=== PATIENT | female | born 1970 | race African-American/Black ===

== ENCOUNTER 2018-04-08 08:01 | Emergency (ER) | payer OTHER ==
[~2018-04-08] VITALS: Ht 154.9 cm; Wt 84.8 kg
[2018-04-08] MEDS ORDERED: predniSONE 10 MG TABLET PO ONE (08:30)
[2018-04-08] MEDS ORDERED: IBUPROFEN 600 MG TABLET. PO ONE (08:30)
[2018-04-08 08:45] LABS: BASO % 0 % (0-3); EOS # 0.2 x10^3/uL (0.0-0.7); EOS % 4 % (0-3); HEMOGLOBIN 13.4 g/dL (12.0-15.5); LYMPH % 21 % (24-48); MEAN CORPUSCULAR HEMOGLOBIN 32 pg (25-35); MEAN CORPUSCULAR HGB CONC 35 g/dL (31-37); MEAN CORPUSCULAR VOLUME 90 fL (79-100); MONO # 0.7 x10^3/uL (0.0-1.1); MONO % 15 % (0-9); NEUT # 2.7 x10^3uL (1.8-7.7); NEUT % 59 % (31-73); PLATELET COUNT 262 x10^3/uL (140-400); RED BLOOD COUNT 4.23 x10^6/uL (3.50-5.40); RED CELL DISTRIBUTION WIDTH 12.9 % (11.5-14.5); WHITE BLOOD COUNT 4.6 x10^3/uL (4.0-11.0)
[2018-04-08] MEDS ORDERED: KETOROLAC 30 MG/ML VIAL. IV ONE (08:45)
--- NOTE | 2018-04-08 08:45 | PHYS DOC ---
Past Medical History Past Medical History: No Pertinent History Past Surgical History: , Hysterectomy Alcohol Use: None Drug Use: None Adult General Chief Complaint Chief Complaint: FLU SYMPTOM HPI HPI Patient is a 47 year old female who presents with sinus congestion, fever, chest pressure and pain with cough, shortness of air with exertion for 1 week. Patient states she's been gagging from coughing is causing her to vomit occasionally. She states she has been taking in plenty of fluids. States that her throat is sore from coughing. Patient states she's been taking her: Left, day and night cold and flu, cough medication, Tylenol which was last at 7:30 this morning. Patient rates her pain a 7 out of 10. She has tachycardia at 119, 96% on room air, 160/88, 24 respirations. Patient states she takes no medications daily and has no past medical history. Patient has had a hysterectomy and had pneumonia back in 2013 of which she states that that is what this feels like. Patient is also had a . Review of Systems Review of Systems Constitutional: fever or chills [] Eyes: Denies change in visual acuity, redness, or eye pain [] HENT: nasal congestion and sore throat [] Respiratory: Cough and shortness of breath [] Cardiovascular: No additional information not addressed in HPI [] GI: Denies abdominal pain, nausea, vomiting, bloody stools or diarrhea [] : Denies dysuria or hematuria [] Musculoskeletal: Body aches. Denies back pain or joint pain [] Integument: Denies rash or skin lesions [] Neurologic: Denies headache, focal weakness or sensory changes [] All other systems were reviewed and found to be within normal limits, except as documented in this note. Current Medications Current Medications Current Medications Medications (Trade) Dose Ordered Sig/Dominic Start Time Stop Time Status Last Admin Dose Admin Albuterol/ Ipratropium (Duoneb) 3 ml 1X ONCE 04/08/18 09:15 04/08/18 09:16 UNV Ibuprofen (Motrin) 600 mg 1X ONCE 04/08/18 08:30 04/08/18 08:31 Cancel Ketorolac Tromethamine (Toradol 30mg Vial) 30 mg 1X ONCE 04/08/18 08:45 04/08/18 08:46 DC 04/08/18 08:55 30 MG Prednisone (Prednisone) 50 mg 1X ONCE 04/08/18 08:30 04/08/18 08:31 DC 04/08/18 08:55 50 MG Allergies Allergies Allergies Coded Allergies Type Severity Reaction Last Updated Verified No Known Drug Allergies 05/16/13 No Physical Exam Physical Exam Constitutional: Well developed, well nourished, no acute distress, non-toxic appearance. [] HENT: Normocephalic, atraumatic, bilateral external ears normal, oropharynx moist, no oral exudates, nose normal. [] Eyes: PERRLA, EOMI, conjunctiva normal, no discharge. [] Neck: Normal range of motion, no tenderness, supple, no stridor. [] Cardiovascular: Tachycardia, regular rhythm, no murmur [] Lungs & Thorax: Bilateral upper lobes clear but lower lobes are diminished Abdomen: Bowel sounds normal, soft, no tenderness, no masses, no pulsatile masses. [] Skin: Warm, dry, no erythema, no rash. [] Back: No tenderness, no CVA tenderness. [] Extremities: No tenderness, no cyanosis, no clubbing, ROM intact, no edema. [] Neurologic: Alert and oriented X 3, normal motor function, normal sensory function, no focal deficits noted. [] Psychologic: Affect normal, judgement normal, mood normal. [] Current Patient Data Vital Signs Vital Signs Date Time Temp Pulse Resp B/P (MAP) Pulse Ox O2 Delivery O2 Flow Rate FiO2 04/08/18 08:05 99.4 123 20 160/88 (112) 96 Room Air 99.4 Lab Values Laboratory Tests Test 04/08/18 08:10 04/08/18 08:30 Influenza Type A Antigen Negative (NEGATIVE) Influenza Type B Antigen Negative (NEGATIVE) White Blood Count 4.6 x10^3/uL (4.0-11.0) Red Blood Count 4.23 x10^6/uL (3.50-5.40) Hemoglobin 13.4 g/dL (12.0-15.5) Hematocrit 38.0 % (36.0-47.0) Mean Corpuscular Volume 90 fL (79-100) Mean Corpuscular Hemoglobin 32 pg (25-35) Mean Corpuscular Hemoglobin Concent 35 g/dL (31-37) Red Cell Distribution Width 12.9 % (11.5-14.5) Platelet Count 262 x10^3/uL (140-400) Neutrophils (%) (Auto) 59 % (31-73) Lymphocytes (%) (Auto) 21 % (24-48) L Monocytes (%) (Auto) 15 % (0-9) H Eosinophils (%) (Auto) 4 % (0-3) H Basophils (%) (Auto) 0 % (0-3) Neutrophils # (Auto) 2.7 x10^3uL (1.8-7.7) Lymphocytes # (Auto) 1.0 x10^3/uL (1.0-4.8) Monocytes # (Auto) 0.7 x10^3/uL (0.0-1.1) Eosinophils # (Auto) 0.2 x10^3/uL (0.0-0.7) Basophils # (Auto) 0.0 x10^3/uL (0.0-0.2) Sodium Level 138 mmol/L (136-145) Potassium Level 4.2 mmol/L (3.5-5.1) Chloride Level 103 mmol/L (98-107) Carbon Dioxide Level 25 mmol/L (21-32) Anion Gap 10 (6-14) Blood Urea Nitrogen 8 mg/dL (7-20) Creatinine 0.7 mg/dL (0.6-1.0) Estimated GFR (Cockcroft-Gault) 88.9 Glucose Level 109 mg/dL (70-99) H Calcium Level 8.8 mg/dL (8.5-10.1) Laboratory Tests 04/08/18 08:30 Laboratory Tests 04/08/18 08:30 EKG EKG SINUS NO STEMI Interpretation Time: [address] MUNOZ Radiology/Procedures Radiology/Procedures Chest xray Impressions: [facility] [address] [place], [place] [id number] IMAGING REPORT Signed PATIENT: SHYANN HENDERSON ACCOUNT: [id number] : 1970 LOCATION: ER AGE: 47 SEX: F EXAM STATUS: REG ER ORD. PHYSICIAN: RAMON WELDON APRN REASON: chest tightness, fever PROCEDURE: CHEST PA & LATERAL Chest, PA and Lateral: Technique: PA and lateral views of the chest were obtained. History: Chest tightness, cough, fever. Comparison: 05/19/2013. Findings: The heart and pulmonary vasculature appear within normal limits. Minimal bibasilar lung airspace opacities.. Mild degenerative changes thoracic spine.. Impression: Minimal bibasilar lung airspace opacities likely atelectasis or infiltrates.. Electronically signed by: Liam Lim MD (04/08/2018 8:48 AM) [facility] DICTATED and SIGNED BY: LIAM LIM MD DATE: 04/08/18 0846 Course & Med Decision Making Course & Med Decision Making Patient is a 47 year old female who presents with sinus congestion, fever, chest pressure and pain with cough, shortness of air with exertion for 1 week. Patient states she's been gagging from coughing is causing her to vomit occasionally. She states she has been taking in plenty of fluids. States that her throat is sore from coughing. Patient states she's been taking her: Left, day and night cold and flu, cough medication, Tylenol which was last at 7:30 this morning. Patient rates her pain a 7 out of 10. She has tachycardia at 119, 96% on room air, 160/88, 24 respirations. Patient states she takes no medications daily and has no past medical history. Patient has had a hysterectomy and had pneumonia back in 2013 of which she states that that is what this feels like. Patient is also had a . skin is pink warm and dry. Alert And oriented. Ambulatory. Patient is very out of breath from walking from triage to her room. She speaks in full clear sentences. Patient has a productive cough but states that she is afraid of coughing because it hurts. Patient denies any nausea vomiting or diarrhea. Throat is pink and without exudates. Bilateral tympanic membranes are within pearly white. She has no extremity edema or rashes. Patient states that she did not get her flu shot. Lungs are clear to auscultation upper lobes but slightly diminished in lower lobes. I do not hear any wheezing or rales or coarseness. Chest xray shows pneumonia. She is treated with Azithromycin. [] Dragon Disclaimer Dragon Disclaimer This electronic medical record was generated, in whole or in part, using a voice recognition dictation system. Departure Departure Impression: Primary Impression: Community acquired pneumonia Disposition: 01 HOME, SELF-CARE Condition: STABLE Referrals: NO PCP (PCP) Patient Instructions: Pneumonia, Adult Additional Instructions: FOLLOW UP WITH YOUR PRIMARY CARE. USE TYLENOL OR IBUPROFEN. DRINK PLENTY OF FLUIDS. Scripts Azithromycin (AZITHROMYCIN TABLET) 250 Mg Tablet 1 PKG PO UD, #6 TAB Prov: RAMON WELDON APRN 04/08/18 Problem Qualifiers Primary Impression: Community acquired pneumonia Laterality: unspecified laterality Qualified Codes: J18.9 - Pneumonia, unspecified organism RAMON WELDON APRN Apr 08, 2018 08:45
[2018-04-08 08:51] LABS: CALCIUM 8.8 mg/dL (8.5-10.1); CREATININE 0.7 mg/dL (0.6-1.0); GFR 88.9
--- NOTE | 2018-04-08 08:52 | RAD ---
Chest, PA and Lateral: Technique: PA and lateral views of the chest were obtained. History: Chest tightness, cough, fever. Comparison: 05/19/2013. Findings: The heart and pulmonary vasculature appear within normal limits. Minimal bibasilar lung airspace opacities.. Mild degenerative changes thoracic spine.. Impression: Minimal bibasilar lung airspace opacities likely atelectasis or infiltrates.. Electronically signed by: Liam Lim MD (04/08/2018 8:48 AM) [facility]
[2018-04-08 08:55] LABS: INFLUENZA A PATIENT NEGATIVE (NEGATIVE); INFLUENZA B PATIENT NEGATIVE (NEGATIVE)
[2018-04-08 08:55] LABS: POTASSIUM 4.2 mmol/L (3.5-5.1)
[2018-04-08] MEDS ORDERED: AZIT250T6 PO ×2 (09:02→09:10)
[2018-04-08] MEDS ORDERED: IPRATRPIUM/ALBUTEROL 0.5/2.5MG 3 ML NEBU. NEB ONE (09:15)
[2018-04-08 10:03] VITALS: BP 140/65
--- NOTE | 2018-04-09 08:18 | EKG ---
[facility] [address] [place] [address] Test Date: 2018-04-08 Test Time: 08:45:00 Pat Name: SHYANN HENDERSON Department: Room: Gender: Female Head Of Visual Merchandising: : 1970 Requested By: RAMON WELDON Order Number: [id number] Reading MD: Kip Livingston Measurements Intervals [place] Rate: 94 P: 22 ME: 140 QRS: 28 QRSD: 68 T: 28 QT: 330 QTc: 418 Interpretive Statements SINUS RHYTHM Electronically Signed On 04-10-2018 8:53:42 CONSULTING [employer] FORESTER by Kip Livingston
== END 2018-04-08 10:11 | disposition home or self-care (01) ==
LOC: ER 08:01
DX: J18.9 Pneumonia, unspecified organism (principal)
CPT/HCPCS: 36415; 71046; 80048; 85025; 87804; 93005; 94640; 96374; 99284; J1885; J7512; J7620

== ENCOUNTER 2018-07-01 08:28 | Emergency (ER) | payer OTHER ==
[~2018-07-01] VITALS: Ht 154.9 cm; Wt 80.3 kg
[~2018-07-01 08:28] MED LIST: AZIT250T6 PO
[2018-07-01] MEDS ORDERED: IV NORMAL SALINE 1000ML BAG 1,000 ML IV SCH (08:42)
[2018-07-01] MEDS ORDERED: IPRATRPIUM/ALBUTEROL 0.5/2.5MG 3 ML NEBU. NEB ONE (08:45)
[2018-07-01] MEDS ORDERED: KETOROLAC 30 MG/ML VIAL. IV ONE (08:45)
[2018-07-01] MEDS ORDERED: ONDANSETRON PF 4 MG/2 ML VIAL. IV ONE (08:45)
[2018-07-01] MEDS ORDERED: fentaNYL PF VIAL 100 MCG/2 ML VIAL IV ONE (08:45)
[2018-07-01] MEDS ORDERED: predniSONE 10 MG TABLET PO ONE (08:45)
[2018-07-01] MEDS ORDERED: IV NORMAL SALINE 1000ML BAG 1,000 ML IV ONE ×2 (08:45→09:30)
--- NOTE | 2018-07-01 08:57 | PHYS DOC ---
Past Medical History Past Medical History: No Pertinent History (RAMON WELDON APRN) Past Surgical History: , Hysterectomy (RAMON WELDON APRN) Alcohol Use: None Drug Use: None (RAMON WELDON APRN) Adult General Chief Complaint Chief Complaint: SHORTNESS OF BREATH HPI HPI Patient is a 48 year old female who presents with nasal congestion, cough, shortness of air, headache, chest pain, fever 3 days. Nausea vomiting that started yesterday. Alert and oriented. Speaks in full clear sentences. Patient states that she is coughing up yellow-green mucus. Patient states that she's been seen at [facility] and they keep telling her that it's a respiratory virus. Patient's only history is pneumonia she takes no medications daily. She states she has been taking Mucinex and cold and flu medication. (RAMON WELDON APRN) Review of Systems Review of Systems Constitutional: fever or chills [] Eyes: Denies change in visual acuity, redness, or eye pain [] HENT: nasal congestion or sore throat [] Respiratory: cough or shortness of breath [] Cardiovascular:Chest pain GI: Denies abdominal pain. + nausea, +vomiting, decreased bloody stools or diarrhea [] : Denies dysuria or hematuria [] Musculoskeletal: Denies back pain or joint pain [] Integument: Denies rash or skin lesions [] Neurologic: Denies headache, focal weakness or sensory changes [] All other systems were reviewed and found to be within normal limits, except as documented in this note. (RAMON WELDON APRN) Current Medications Current Medications Current Medications Medications (Trade) Dose Ordered Sig/Dominic Start Time Stop Time Status Last Admin Dose Admin Albuterol/ Ipratropium (Duoneb) 3 ml 1X ONCE 07/01/18 08:45 07/01/18 08:51 DC 07/01/18 08:55 3 ML Fentanyl Citrate (Fentanyl 2ml Vial) 50 mcg 1X ONCE 07/01/18 08:45 07/01/18 08:51 DC 07/01/18 09:20 50 MCG Ketorolac Tromethamine (Toradol 30mg Vial) 30 mg 1X ONCE 07/01/18 08:45 07/01/18 08:51 DC 07/01/18 09:19 30 MG Ondansetron HCl (Zofran) 4 mg 1X ONCE 07/01/18 08:45 07/01/18 08:51 DC 07/01/18 09:18 4 MG Prednisone (Prednisone) 50 mg 1X ONCE 07/01/18 08:45 07/01/18 08:51 DC 07/01/18 09:13 50 MG Sodium Chloride 1,000 ml @ 1,000 mls/hr 1X ONCE 07/01/18 09:30 07/01/18 10:29 DC 07/01/18 10:10 1,000 MLS/HR (ANGELIKA CINTRON MD) Allergies Allergies Allergies Coded Allergies Type Severity Reaction Last Updated Verified No Known Drug Allergies 05/16/13 No (ANGELIKA CINTRON MD) Physical Exam Physical Exam Constitutional: Well developed, well nourished, no acute distress, non-toxic appearance. [] HENT: Normocephalic, atraumatic, bilateral external ears normal, oropharynx moist, no oral exudates, nasal congestion. [] Eyes: PERRLA, EOMI, conjunctiva normal, no discharge. [] Neck: Normal range of motion, no tenderness, supple, no stridor. [] Cardiovascular:Heart rate tachycardia rhythm, no murmur [] Lungs & Thorax: Bilateral breath sounds clear to auscultation, but soa with exertion [] Abdomen: Bowel sounds normal, soft, no tenderness, no masses, no pulsatile masses. [] Skin: Warm, dry, no erythema, no rash. [] Back: No tenderness, no CVA tenderness. [] Extremities: No tenderness, no cyanosis, no clubbing, ROM intact, no edema. [] Neurologic: Alert and oriented X 3, normal motor function, normal sensory function, no focal deficits noted. [] Psychologic: Affect normal, judgement normal, mood normal. [] (FATEMEH,RAMON Linda APRN) Current Patient Data Vital Signs Vital Signs Date Time Temp Pulse Resp B/P (MAP) Pulse Ox O2 Delivery O2 Flow Rate FiO2 07/01/18 10:00 98 20 164/80 (108) 97 Room Air 07/01/18 08:29 99.2 99.2 (ANGELIKA CINTRON MD) Lab Values Laboratory Tests Test 07/01/18 08:40 White Blood Count 7.2 x10^3/uL (4.0-11.0) Red Blood Count 4.38 x10^6/uL (3.50-5.40) Hemoglobin 13.2 g/dL (12.0-15.5) Hematocrit 38.6 % (36.0-47.0) Mean Corpuscular Volume 88 fL (79-100) Mean Corpuscular Hemoglobin 30 pg (25-35) Mean Corpuscular Hemoglobin Concent 34 g/dL (31-37) Red Cell Distribution Width 12.7 % (11.5-14.5) Platelet Count 313 x10^3/uL (140-400) Neutrophils (%) (Auto) 71 % (31-73) Lymphocytes (%) (Auto) 13 % (24-48) L Monocytes (%) (Auto) 11 % (0-9) H Eosinophils (%) (Auto) 5 % (0-3) H Basophils (%) (Auto) 0 % (0-3) Neutrophils # (Auto) 5.1 x10^3uL (1.8-7.7) Lymphocytes # (Auto) 1.0 x10^3/uL (1.0-4.8) Monocytes # (Auto) 0.8 x10^3/uL (0.0-1.1) Eosinophils # (Auto) 0.3 x10^3/uL (0.0-0.7) Basophils # (Auto) 0.0 x10^3/uL (0.0-0.2) D-Dimer (Mary) 0.34 ug/mlFEU (0.00-0.50) Sodium Level 139 mmol/L (136-145) Potassium Level 3.8 mmol/L (3.5-5.1) Chloride Level 102 mmol/L (98-107) Carbon Dioxide Level 23 mmol/L (21-32) Anion Gap 14 (6-14) Blood Urea Nitrogen 11 mg/dL (7-20) Creatinine 1.0 mg/dL (0.6-1.0) Estimated GFR (Cockcroft-Gault) 71.0 BUN/Creatinine Ratio 11 (6-20) Glucose Level 116 mg/dL (70-99) H Lactic Acid Level 1.2 mmol/L (0.4-2.0) Calcium Level 9.0 mg/dL (8.5-10.1) Total Bilirubin 0.3 mg/dL (0.2-1.0) Aspartate Amino Transferase (AST) 15 U/L (15-37) Alanine Aminotransferase (ALT) 22 U/L (14-59) Alkaline Phosphatase 46 U/L (46-116) Troponin I Quantitative < 0.017 ng/mL (0.000-0.055) Total Protein 7.5 g/dL (6.4-8.2) Albumin 4.0 g/dL (3.4-5.0) Albumin/Globulin Ratio 1.1 (1.0-1.7) Laboratory Tests 07/01/18 08:40 Laboratory Tests 07/01/18 08:40 (ANGELIKA CINTRON MD) Lab Values Laboratory Tests Test 07/01/18 08:40 White Blood Count 7.2 x10^3/uL (4.0-11.0) Red Blood Count 4.38 x10^6/uL (3.50-5.40) Hemoglobin 13.2 g/dL (12.0-15.5) Hematocrit 38.6 % (36.0-47.0) Mean Corpuscular Volume 88 fL (79-100) Mean Corpuscular Hemoglobin 30 pg (25-35) Mean Corpuscular Hemoglobin Concent 34 g/dL (31-37) Red Cell Distribution Width 12.7 % (11.5-14.5) Platelet Count 313 x10^3/uL (140-400) Neutrophils (%) (Auto) 71 % (31-73) Lymphocytes (%) (Auto) 13 % (24-48) L Monocytes (%) (Auto) 11 % (0-9) H Eosinophils (%) (Auto) 5 % (0-3) H Basophils (%) (Auto) 0 % (0-3) Neutrophils # (Auto) 5.1 x10^3uL (1.8-7.7) Lymphocytes # (Auto) 1.0 x10^3/uL (1.0-4.8) Monocytes # (Auto) 0.8 x10^3/uL (0.0-1.1) Eosinophils # (Auto) 0.3 x10^3/uL (0.0-0.7) Basophils # (Auto) 0.0 x10^3/uL (0.0-0.2) D-Dimer (Mary) 0.34 ug/mlFEU (0.00-0.50) Sodium Level 139 mmol/L (136-145) Potassium Level 3.8 mmol/L (3.5-5.1) Chloride Level 102 mmol/L (98-107) Carbon Dioxide Level 23 mmol/L (21-32) Anion Gap 14 (6-14) Blood Urea Nitrogen 11 mg/dL (7-20) Creatinine 1.0 mg/dL (0.6-1.0) Estimated GFR (Cockcroft-Gault) 71.0 BUN/Creatinine Ratio 11 (6-20) Glucose Level 116 mg/dL (70-99) H Lactic Acid Level 1.2 mmol/L (0.4-2.0) Calcium Level 9.0 mg/dL (8.5-10.1) Total Bilirubin 0.3 mg/dL (0.2-1.0) Aspartate Amino Transferase (AST) 15 U/L (15-37) Alanine Aminotransferase (ALT) 22 U/L (14-59) Alkaline Phosphatase 46 U/L (46-116) Troponin I Quantitative < 0.017 ng/mL (0.000-0.055) Total Protein 7.5 g/dL (6.4-8.2) Albumin 4.0 g/dL (3.4-5.0) Albumin/Globulin Ratio 1.1 (1.0-1.7) Laboratory Tests 07/01/18 08:40 Laboratory Tests 07/01/18 08:40 (RAMON WELDON APRN) EKG EKG Sinus Tachycardia and no STEMI[] Interpretation Time: [address] Cintron (RAMON WELDON APRN) Radiology/Procedures Radiology/Procedures [] (RAMON WELDON APRN) Impressions: [facility] [address] [place] [address] IMAGING REPORT Signed PATIENT: SHYANN HENDERSON ACCOUNT: [id number] : 1970 LOCATION: ER AGE: 48 SEX: F EXAM STATUS: PRE ER ORD. PHYSICIAN: RAMON WELDON APRN REASON: chest pain PROCEDURE: CHEST PA & LATERAL CHEST PA LATERAL CLINICAL INDICATION: CHEST PAIN, SOA, WET COUGH X3 DAYS. HX OF PNEUMONIA COMPARISON: 04/08/2018 FINDINGS: Heart is normal in size. Left basilar patchy opacities are seen. No pneumothorax or effusion. Visualized bony thorax within normal limits. IMPRESSION: Left basilar patchy opacities may be secondary to subsegmental atelectasis, aspiration or pneumonia. Electronically signed by: Pramod Miranda DO (07/01/2018 9:22 AM) [facility] DICTATED and SIGNED BY: PRAMOD MIRANDA DO DATE: 07/01/18919 (RAMON WELDON APRN) Course & Med Decision Making Course & Med Decision Making Patient is a 48 year old female who presents with nasal congestion, cough, shortness of air, headache, chest pain (10) nonradiating, fever 3 days. Nausea vomiting that started yesterday. Alert and oriented. Speaks in full clear sentences. Patient states that she is coughing up yellow-green mucus. Patient states that she's been seen at [facility] and they keep telling her that it's a respiratory virus. Patient's only history is pneumonia she takes no medications daily. She states she has been taking Mucinex and cold and flu medication. Alert and oriented. Skin pink warm and dry. Mucous membranes moist. Ambulatory. Patient is short of air with exertion. Lungs are clear to auscultation all lobes. She has no extremity swelling. Abdomen is soft and nontender. Patient states that she has chest pain that feels like it is stabbing her being ripped apart especially when she goes to blow her nose or cough. Patient did seem to be very exerted after eating undressed in the room. PERRLA. Denies dizziness, syncope, or weaknesses, numbness or tingling, visual changes. Patient states she feels generalized weakness. She was all extremities equally. PERC states PE can not be ruled out. Wells states low risk. I have ordered a ddimer. Heart score 2. Blood work unremarkable. Chest xray shows Left basilar patchy opacities may be secondary to subsegmental atelectasis, aspiration or pneumonia. Patient will be treated for pneumonia with a prescription for azithromycin, Medrol Dosepak, and pro-air inhaler. Patient is to follow-up with her primary care doctor within the next 5 days or sooner if not getting any better. Heart rate 106, 98% room air, 19 RR. (RAMON WELDON APRN) Course & Med Decision Making Staff Physician Addendum: I was working in the ER during the course of this patient's visit. I was available for consultation as needed, but I was not directly involved in the care of this patient. (ANGELIKA CINTRON MD) Dragon Disclaimer Dragon Disclaimer This electronic medical record was generated, in whole or in part, using a voice recognition dictation system. (RAMON WELDON APRN) Departure Departure Impression: Primary Impression: Community acquired pneumonia Disposition: HOME, SELF-CARE Condition: STABLE Referrals: NO PCP (PCP) Patient Instructions: Pneumonia, Adult Additional Instructions: Follow up with primary care physician within 5 days. Take medications as prescribed. Drink plenty of fluids. Scripts Benzonatate (TESSALON PERLE) 100 Mg Capsule 1 CAP PO TID, #30 CAP Prov: MARILEENAJAENL MCKINNONCHELLE Linda APR07/01/18 Ibuprofen (IBUPROFEN) 600 Mg Tablet 600 MG PO PRN Q6HRS PRN for INFLAMMATION, #15 TAB Prov: RAMON WELDON 07/01/18 Ondansetron (ONDANSETRON ODT) 4 Mg Tab.rapdis 1 TAB PO PRN Q6-8HRS, #16 TAB Prov: FATEMEHRAMON M 07/01/18 Albuterol Sulfate (PROAIR HFA INHALER) 8.5 Gm Hfa.aer.ad 1 PUFF INH PRN Q6HRS PRN for SHORTNESS OF BREATH, #1 INHALER 0 Refills Prov: MARIELENAJANEL MCKINNONCHELLE Linda APR07/01/18 Methylprednisolone (MEDROL) 4 Mg Tab.ds.pk 1 PKG PO UD, #1 PKG Prov: RAMON WELDON APR07/01/18 Azithromycin (AZITHROMYCIN TABLET) 250 Mg Tablet 1 PKG PO UD, #6 TAB Prov: MARIELENARAMONCHELLE Linda APRN 07/01/18 Problem Qualifiers Primary Impression: Community acquired pneumonia Laterality: left Lung location: unspecified part of lung Qualified Codes: J18.9 - Pneumonia, unspecified organism RAMON WELDON APRN Jul 01, 2018 08:57 ANGELIKA CINTRON MD Jul 01, 2018 11:51
[2018-07-01 09:05] LABS: BASO % 0 % (0-3); EOS # 0.3 x10^3/uL (0.0-0.7); EOS % 5 % (0-3); HEMATOCRIT 38.6 % (36.0-47.0); HEMOGLOBIN 13.2 g/dL (12.0-15.5); LYMPH % 13 % (24-48); MEAN CORPUSCULAR HEMOGLOBIN 30 pg (25-35); MEAN CORPUSCULAR HGB CONC 34 g/dL (31-37); MEAN CORPUSCULAR VOLUME 88 fL (79-100); MONO # 0.8 x10^3/uL (0.0-1.1); MONO % 11 % (0-9); NEUT # 5.1 x10^3uL (1.8-7.7); NEUT % 71 % (31-73); PLATELET COUNT 313 x10^3/uL (140-400); RED BLOOD COUNT 4.38 x10^6/uL (3.50-5.40); RED CELL DISTRIBUTION WIDTH 12.7 % (11.5-14.5); WHITE BLOOD COUNT 7.2 x10^3/uL (4.0-11.0)
[2018-07-01 09:13] LABS: POTASSIUM 3.8 mmol/L (3.5-5.1)
[2018-07-01 09:19] LABS: ALBUMIN/GLOBULIN RATIO 1.1 (1.0-1.7); TOTAL BILIRUBIN 0.3 mg/dL (0.2-1.0); TOTAL PROTEIN 7.5 g/dL (6.4-8.2)
--- NOTE | 2018-07-01 09:25 | RAD ---
CHEST PA LATERAL CLINICAL INDICATION: CHEST PAIN, SOA, WET COUGH X3 DAYS. HX OF PNEUMONIA COMPARISON: 04/08/2018 FINDINGS: Heart is normal in size. Left basilar patchy opacities are seen. No pneumothorax or effusion. Visualized bony thorax within normal limits. IMPRESSION: Left basilar patchy opacities may be secondary to subsegmental atelectasis, aspiration or pneumonia. Electronically signed by: Pramod Miranda DO (07/01/2018 9:22 AM) [facility]
[2018-07-01] MEDS ORDERED: METH4TAB2 PO (09:35)
[2018-07-01] MEDS ORDERED: BENZ100C PO (09:35)
[2018-07-01] MEDS ORDERED: ONDA4TAB12 PO (09:35)
[2018-07-01] MEDS ORDERED: IBUP-1007 PO (09:35)
[2018-07-01] MEDS ORDERED: ALBU2.5V8 INH (09:35)
[2018-07-01] MEDS ORDERED: AZIT250T6 PO (09:35)
[2018-07-01 10:00] VITALS: BP 164/80
--- NOTE | 2018-07-01 14:49 | EKG ---
[facility] [address] [place] [address] Test Date: 2018-07-01 Test Time: 09:03:37 Pat Name: SHYANN HENDERSON Department: Room: Gender: F Ssis Architect: : 1970 Requested By: RAMON WELDON Order Number: [id number] Reading MD: Kip Livingston Measurements Intervals [place] Rate: 106 P: 0 [place]: 140 QRS: 47 QRSD: 64 T: 49 QT: 320 QTc: 427 Interpretive Statements SINUS TACHYCARDIA Electronically Signed On 07-11-2018 10:35:54 PUBLIC HEALTH CLINICAL NURSE SPECIALIST by Kip Livingston
== END 2018-07-01 10:54 | disposition home or self-care (01) ==
LOC: ER 08:28
DX: J18.9 Pneumonia, unspecified organism (principal); R11.2 Nausea with vomiting, unspecified
CPT/HCPCS: 71046; 80053; 83605; 84484; 85025; 85379; 87040; 93005; 94640; 96361; 96374; 96375; 99284; J1885; J2405; J3010; J7030; J7512; J7620; 36415

== ENCOUNTER 2018-08-14 17:00 | Emergency (ER) | payer OTHER ==
[~2018-08-14] VITALS: Ht 154.9 cm; Wt 85.7 kg
[~2018-08-14 17:00] MED LIST changes: +ALBU2.5V8 INH; +BENZ100C PO; +IBUP-1007 PO; +METH4TAB2 PO; +ONDA4TAB12 PO
[2018-08-14 17:13] VITALS: BP 165/64
--- NOTE | 2018-08-14 17:44 | PHYS DOC ---
Past Medical History Past Medical History: Pneumonia Past Surgical History: , Hysterectomy Alcohol Use: None Drug Use: None Adult General Chief Complaint Chief Complaint: BACK PAIN - NO INJURY HPI HPI 48-year-old female presents to ER with complaints of low mid back pain 1 week. Patient denies any recent falls or injury. Patient denies taking any over-the- counter medications for pain. She reports she has done IN salt soak with no relief in symptoms. She denies urinary symptoms, fever, saddle anesthesia, or incontinence of bowel or bladder. 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 She reports she's had pain with standing and repositioning. She denies swelling in lower extremities, calf pain, or numbness and tingling. She denies any recent long trips. She reports she wears heels majority of the days for her job. Patient reports she didn't want to take any medications to mask her pain so that she would be able to identify where she was tender. She reports she drove herself to the ER. Review of Systems Review of Systems Constitutional: Denies fatigue or weakness Cardiovascular: No additional information not addressed in HPI [] GI: Denies abdominal pain, nausea, vomiting, bloody stools or diarrhea [] : Denies dysuria or hematuria. Denies incontinence of bowel or bladder. Ports history of hysterectomy Musculoskeletal: Denies neck pain or joint pain. Reports mid low back pain denies radiation into bilateral sides of back or down her extremities. Integument: Denies rash, swelling or skin lesions [] Neurologic: Denies headache, focal weakness or sensory changes. Denies numbness/ tingling All other systems were reviewed and found to be within normal limits, except as documented in this note. Current Medications Current Medications Current Medications Medications (Trade) Dose Ordered Sig/Dominic Start Time Stop Time Status Last Admin Dose Admin Ibuprofen (Motrin) 800 mg 1X ONCE 08/14/18 17:45 08/14/18 17:46 DC 08/14/18 18:14 800 MG Lidocaine (Lidoderm) 1 patch DAILY 08/14/18 18:00 08/14/18 19:02 DC 08/14/18 18:14 1 PATCH Miscellaneous (Lidoderm Patch Removal) 1 ea QHS 08/14/18 21:00 08/14/18 21:00 DC Allergies Allergies Allergies Coded Allergies Type Severity Reaction Last Updated Verified No Known Drug Allergies 05/16/13 No Physical Exam Physical Exam Constitutional: Well developed, well nourished, no acute distress, non-toxic appearance. [] HENT: Normocephalic, atraumatic, oropharynx moist, nose normal. [] Eyes: Pupils equal, conjunctiva normal, no discharge. [] Neck: Normal range of motion, no tenderness, supple, no stridor. [] Cardiovascular: Heart rate regular Lungs & Thorax: Resp. equal/nonlabored Skin: Warm, dry, no erythema, no rash. [] Back: Tender mid low lumbar spine- no palp. deformity/crepitus- full ROM, no CVA tenderness. Steady unassisted gait Extremities: No tenderness, no cyanosis, no clubbing, ROM intact, no edema. 2+ bilat. posterior tibial. No calf tenderness. Symmetric calf size Neurologic: Alert and oriented X 3, normal motor function, normal sensory function, no focal deficits noted. [] Psychologic: Affect normal, judgement normal, mood normal. [] Current Patient Data Vital Signs Vital Signs Date Time Temp Pulse Resp B/P (MAP) Pulse Ox O2 Delivery O2 Flow Rate FiO2 08/14/18 17:13 98.0 93 16 165/64 (97) 98 Room Air 98.0 EKG EKG [] Radiology/Procedures Radiology/Procedures [] Course & Med Decision Making Course & Med Decision Making Pertinent Imaging studies reviewed. (See chart for details) 1840: Pt's xray was viewed by Dr. Stokes with no obvious displaced fxs- arthritic changes were reviewed. Patient had large amount of stool visible without obvious findings for obstruction. Patient denies any abdominal pain, nausea or vomiting, or concerns for constipation. Discussed x-rays with patient and advised on increasing fluid intake and vqog-hyj-vinytop stool softener. Patient reports significant improvement in pain since having Lidoderm patch and dose of ibuprofen provided while in the ER. Patient has had steady gait unassisted while in the ER and continues to deny any numbness or tingling in bilateral lower extremities. She continues to deny any radiation of pain into sides of back or down extremities. Discussion had with patient regarding back pain and [id number]-[id number] options for pain treatment. Will provide patient with prescription for Robaxin and Lidoderm patch with education on medication. Discussed if symptoms persist she could follow-up with orthopedics for reevaluation & further care-will provide referral information on discharge paperwork. Education provided on signs and symptoms to return to ER. Discharge instructions were discussed. Patient to follow-up with primary care physician if symptoms persist or with any concerns. Dragon Disclaimer Dragon Disclaimer This electronic medical record was generated, in whole or in part, using a voice recognition dictation system. Departure Departure Impression: Primary Impression: Lumbar back pain Disposition: HOME, SELF-CARE Condition: STABLE Referrals: NO PCP (PCP) JANEEN PEACOCK MD Patient Instructions: Back Pain, Adult Additional Instructions: As discussed if possible avoid wearing heels daily. Increase fluid intake and mcig-jyo-kyvzonk stool softeners. If you develop any abdominal pain, nausea or vomiting, or concerns for constipation follow-up with your primary care physician for reevaluation. You can use Tylenol and/or ibuprofen as directed on container for pain control as needed. Other options are heat and ice pack to affected area every 3-4 hours for 20-30 minutes at a time. Topical sports creams can be used if not using Lidoderm patch such as icy hot, BenGay, or capsaicin- as directed on container. His back pain persist follow-up with your primary care physician for reevaluation or orthopedic doctor for further care. Scripts Methocarbamol (ROBAXIN-750) 750 Mg Tablet 1 TAB PO BID PRN for PAIN, #8 TAB [address] or drink alcohol while taking this medication Prov: SOHAN BLANK APRN 08/14/18 SOHAN BLANK APRN Aug 14, 2018 17:44
[2018-08-14] MEDS ORDERED: IBUPROFEN 400 MG TABLET. PO ONE (17:45)
[2018-08-14] MEDS ORDERED: LIDOCAINE (700MG/PATCH) PATCH. TD SCH (18:00)
[2018-08-14] MEDS ORDERED: METH-38 PO (18:51)
[2018-08-14] MEDS ORDERED: PATCH REMOVAL. MC SCH (21:00)
--- NOTE | 2018-08-15 07:44 | RAD ---
Examination: LUMBAR SPINE 2-3V History: ER PATIENT. ATRAUMATIC LOW BACK PAIN JUST LEFT OF THE VERTEBRAE-LUMBAR L3. NO PRIORS. Comparison/Correlation: None Findings: A total 3 images of the lumbar spine were obtained. Alignment is normal. Minimal spurring is present. Vertebral body heights and disc spaces are normal. No fracture or bone destruction. The paraspinal region at the left L3 aspect is unremarkable. Moderate quantity of retained stool in the colon. Impression: No suspicious process. Electronically signed by: Rolando Marley MD (08/15/2018 7:42 AM) [facility]
== END 2018-08-14 19:02 | disposition home or self-care (01) ==
LOC: ER 17:00
DX: M54.5 Low back pain (principal); Z98.890 Other specified postprocedural states; Z90.710 Acquired absence of both cervix and uterus
CPT/HCPCS: 72100; 99283

== ENCOUNTER → 2018-11-27 | Outpatient (CLI) | payer OTHER ==
[~2018-11-27] MED LIST changes: +METH-38 PO
--- NOTE | 2018-11-27 15:08 | KCIC ---
Bilateral diagnostic digital mammograms: Reason for examination: Left breast lumps x3. Comparison is made to previous studies dated 02/23/2018 and 04/06/2016. Interpretation was made with the benefit of CAD. The skin and nipples show no abnormalities. No abnormal axillary lymph nodes are seen. The breast parenchyma is heterogeneously dense. (Breast density: Category C.) There appears to be a small nodular density in the 7:00 B position centrally in the right breast. No abnormalities are seen in the left breast. There are no dominant masses, suspicious calcifications or architectural distortion. Impression: Small nodule centrally at the 7:00 B position of the right breast. No nodules in the left breast in the areas of clinical concern. Your patient's mammogram demonstrates that she has dense breast tissue (breast density category C or D), which could hide abnormalities, and if she has other risk factors for breast cancer that have been identified, she might benefit from supplemental screening tests that may be suggested by you as her ordering physician. Dense breast tissue, in and of itself, is a relatively common condition. Therefore, this information is not provided to cause undue concern, but rather to raise your awareness and to promote discussion with your patient regarding the presence of other risk factors, in addition to dense breast tissue. Your patient's mammography results will be sent to her. BI-RAD Category 0: Incomplete. Needs additional imaging evaluation. Bilateral breast ultrasound: Bilateral breast ultrasound was performed with special attention to the areas of clinical concern and at the axilla. In the right breast at the 7:00 position 5 cm from the nipple, there is a small 9.2 x 3.7 x 6.2 mm partially septated cystic lesion. No other focal nodules are seen. No abnormal appearing lymph nodes are seen in the right axilla. In the left breast, there are no discrete cystic or solid nodules or architectural distortions. No gross abnormalities of seen at the left axilla. IMPRESSION: 9.2 mm partially septated cystic lesion at the 7:00 position of the right breast. No discrete abnormality seen in the left breast. Recommend reevaluation with right breast ultrasound in 6 months. BI-RADS Category 3: Probably Benign. "Our facility is accredited by the [employer] Mammography Program." This patient's information has been entered into a reminder system for the patient to be notified with the results of her examination and a target date for the next mammogram. Electronically signed by: Vanna Corado MD (11/27/2018 3:05 PM) [id number]
== END | disposition home or self-care (01) ==
LOC: KCIC MAMMO 12:48
PROVIDERS: ATTEND Specialist
DX: N63.13 Unspecified lump in the right breast, lower outer quadrant (principal); N64.89 Other specified disorders of breast
CPT/HCPCS: 76641; 77066

== ENCOUNTER → 2020-04-28 | Outpatient (CLI) | payer OTHER ==
--- NOTE | 2020-04-28 10:43 | RAD ---
Examination: 1. Bilateral digital diagnostic mammogram. 2. Limited right breast ultrasound. INDICATION: 49-year-old woman due for bilateral mammographic screening presents for follow-up of a probably benign right breast mass recommended for short-term follow-up the previous year. COMPARISON: Right breast ultrasound of 11/27/2018, bilateral diagnostic mammogram 11/27/2018, bilateral screening mammograms of 02/23/2018 and 04/06/2016. TECHNIQUE: CC and MLO views of both breasts were obtained with 2-D and 3-D technique and reviewed with computer-aided detection. Additional right CC and MLO spot compression views were obtained and targeted ultrasound of the lower-outer quadrant and lateral right breast was performed. FINDINGS: Heterogeneously dense breast parenchyma. Negative left mammogram. Stable nodularity in the middle third lower-outer right breast that changes configuration in a pattern suggestive of overlapping fibroglandular tissue on spot compression. With the benefit of retrospective review, nodular parenchymal pattern is noted in the right breast with no developing mass, architectural distortion or asymmetry. Targeted ultrasound of the lower-outer and lateral right breast show similar benign appearing 9 mm cyst at the 7:00 position 5 cm from the nipple and an incidental 4 mm cyst at the right 9:00 position 4 cm from the nipple. No axillary adenopathy. IMPRESSION: Benign findings on bilateral mammogram and targeted right breast ultrasound. No evidence of malignancy. BI-RADS Category 2 Benign findings Recommend return to routine screening next due in one year. Patient entered into a reminder system with target due date for next mammogram.
== END ==
LOC: MAMMO 08:45
PROVIDERS: ATTEND Obstetrics & Gynecology
DX: N64.4 Mastodynia (principal); N60.01 Solitary cyst of right breast; N63.13 Unspecified lump in the right breast, lower outer quadrant
CPT/HCPCS: 76641; 77066; G0279; 77062